=== PATIENT | male | born 1955 | race Caucasian/White ===

== ENCOUNTER 2016-11-27 13:08 | Emergency (ER) | payer BC ==
--- NOTE | 2016-11-27 13:33 | Emergency Department Record ---
History of Present Illness - General Chief complaint: Abscess Stated complaint: WANTS TO HAVE SORES ON HIP LOOKED AT Time Seen by Provider: 11/27/16 13:22 Source: Patient, RN notes reviewed Mode of Arrival: Ambulatory - History of Present Illness Initial comments: patient is concerned about spots on his back which are actinic keratosis and I advised him to follow up with his primary DrLester after his hip surg is done. Onset/Timin -: Days(s) Location: Back Treatments Prior to Arrival: None - Related Data Home Medications Medication Instructions Recorded Confirmed Last Taken Atenolol [Atenolol] 12.5 mg PO QHS 08/27/14 11/27/16 11/27/16 Levothyroxine Sodium [Synthroid] 200 mcg PO DAILY 08/03/15 11/27/16 11/27/16 Allergies Allergy/AdvReac Type Severity Reaction Status Date / Time Penicillins Allergy Unknown RASH Verified 11/27/16 13:17 Sulfa (Sulfonamide Allergy Unknown RASH Verified 11/27/16 13:17 Antibiotics) sulfamethoxazole Allergy Unknown RASH Verified 11/27/16 13:17 Travel Screening - Travel/Exposure Within Last 30 Days Have you traveled within the last 30 days?: No Review of Systems Reviewed: No additional complaints except as noted below Constitutional: Reports: As per HPI. Denies: Chills, Fever, Malaise, Night sweats, Weakness, Weight change Eyes: Reports: As per HPI. Denies: Eye discharge, Eye pain, Photophobia, Vision change ENT: Reports: As per HPI. Denies: Congestion, Dental pain, Ear pain, Epistaxis , Hearing loss, Throat pain Respiratory: Reports: As per HPI. Denies: Cough, Dyspnea, Hemoptysis, Stridor, Wheezes Cardiovascular: Reports: As per HPI. Denies: Arrhythmia, Chest pain, Dyspnea on exertion, Edema, Murmurs, Orthopnea, Palpitations, Paroxysmal nocturnal dyspnea, Rheumatic Fever, Syncope Endocrine: Reports: As per HPI. Denies: Fatigue, Heat or cold intolerance, Polydipsia, Polyuria Gastrointestinal: Reports: As per HPI. Denies: Abdominal pain, Constipation, Diarrhea, Hematemesis, Hematochezia, Melena, Nausea, Vomiting Genitourinary: Reports: As per HPI. Denies: Dysuria, Frequency, Hematuria, Incontinence, Retention, Testicular pain, Testicular mass, Urgency Musculoskeletal: Reports: As per HPI. Denies: Arthralgia, Back pain, Gout, Joint swelling, Myalgia, Neck pain Skin: Reports: As per HPI, Other (actinic keratosis of his back). Denies: Bruising, Change in color, Change in hair/nails, Lesions, Pruritus, Rash Neurological: Reports: As per HPI. Denies: Abnormal gait, Confusion, Headache, Numbness, Paresthesias, Seizure, Tingling, Tremors, Vertigo, Weakness Psychiatric: Reports: As per HPI. Denies: Anxiety, Auditory hallucinations, Depression, Homicidal thoughts, Suicidal thoughts, Visual hallucinations Hematological/Lymphatic: Reports: As per HPI. Denies: Anemia, Blood Clots, Easy bleeding, Easy bruising, Swollen glands Past Medical History - SOCIAL HISTORY Smoking Status: Never smoker Alcohol Use: None Drug Use: None - RESPIRATORY Hx Respiratory Disorders: Yes Hx Pulmonary Embolism: Yes - CARDIOVASCULAR Hx Cardio Disorders: Yes Hx Deep Vein Thrombosis: Yes Hx Irregular Heartbeat: Yes (-2012) - NEURO Hx Neuro Disorders: No - GI Hx GI Disorders: No - Hx Genitourinary Disorders: No - ENDOCRINE Hx Endocrine Disorders: Yes Hx Thyroid Disease: Yes (nodules) - MUSCULOSKELETAL Hx Musculoskeletal Disorders: Yes Hx Arthritis: Yes - PSYCH Hx Psych Problems: No - HEMATOLOGY/ONCOLOGY Hx Hematology/Oncology Disorders: No Family Medical History Any Significant Family History?: Yes Hx Alcohol Use: Father, Brother/Sister Physical Exam - General General Appearance: Alert, Oriented x3, Cooperative, No acute distress - Head Head exam: Normal inspection - Eye Eye exam: Normal appearance, PERRL Pupils: Normal accommodation - ENT ENT exam: Normal exam, Mucous membranes moist, Normal external ear exam, Normal orophraynx, TM's normal bilaterally Ear exam: Normal external inspection. negative: External canal tenderness Nasal Exam: Normal inspection. negative: Discharge, Sinus tenderness Mouth exam: Normal external inspection, Tongue normal Teeth exam: Normal inspection. negative: Dental caries Throat exam: Normal inspection. negative: Tonsillar erythema, Tonsillar exudate - Neck Neck exam: Normal inspection, Full ROM. negative: Tenderness - Respiratory Respiratory exam: Normal lung sounds bilaterally. negative: Respiratory distress - Cardiovascular Cardiovascular Exam: Regular rate, Normal rhythm, Normal heart sounds - GI/Abdominal GI/Abdominal exam: Soft, Normal bowel sounds. negative: Tenderness - Rectal Rectal exam: Deferred - exam: Deferred - Extremities Extremities exam: Normal inspection, Full ROM, Normal capillary refill. negative: Tenderness - Back Back exam: Reports: Normal inspection, Full ROM. Denies: Muscle spasm, Rash noted, Tenderness - Neurological Neurological exam: Alert, Normal gait, Oriented X3, Reflexes normal - Psychiatric Psychiatric exam: Normal affect, Normal mood - Skin Skin exam: Other (actinic keratosis spots on his back) Course Vital Signs 11/27/16 13:12 Temperature 98.3 F Pulse Rate 75 Respiratory 16 Rate Blood Pressure 133/70 Pulse Ox 97 Disposition Clinical Impression: Actinic keratitis Qualifiers: Laterality: right Qualified Code(s): H16.131 - Photokeratitis, right eye Disposition: Home, Self-Care Condition: (1) Good Instructions: Actinic Keratosis (ED) Additional Instructions: follow up with Dr. Paul his primary after hip surgery Forms: Patient Portal Access Time of Disposition: 13:36
== END 2016-11-27 13:42 | disposition home or self-care (01) ==
LOC: ER 13:08
DX: L57.0 Actinic keratosis (principal)
CPT/HCPCS: 99282

== ENCOUNTER 2018-12-18 17:46 | Emergency (ER) | payer BC ==
--- NOTE | 2018-12-18 17:59 | Emergency Department Record ---
History of Present Illness - General Chief Complaint: Arrythmia/Palpitations Stated Complaint: irregular heartbeat Time Seen by Provider: 12/18/18 17:48 Source: Patient Mode of Arrival: Ambulatory Limitations: No limitations - History of Present Illness Initial Comments: 63 yo male presents to ED for evaluation of possible irregular heart beat. Patient reports a history of atrial fibrillation 6 years ago resulting from (2) thyroid nodules, reports that a wrist monitor indicated that he had an irregular heart beat this evening. Patient denies palpitations or chest discomfort, does report chronic shoulder pain resulting from a previous surgery- reports that he has an appointment with a PM&R specialist in 8 days for his shoulder. MD Complaint: Irregular heart beat Onset/Timin -: Minutes(s) Arrythmia History: Atrial fibrillation Associated Symptoms: Denies other symptoms, Other - Related Data Allergies Allergy/AdvReac Type Severity Reaction Status Date / Time Penicillins Allergy Unknown RASH Unverified 03/30/18 10:17 Sulfa (Sulfonamide Allergy Unknown RASH Unverified 03/30/18 10:17 Antibiotics) sulfamethoxazole Allergy Unknown RASH Unverified 03/30/18 10:17 Travel Screening - Travel/Exposure Within Last 30 Days Have you traveled within the last 30 days?: No Review of Systems Constitutional: Denies: Chills, Fever Eyes: Denies: Eye discharge, Eye pain ENT: Denies: Congestion, Ear pain, Epistaxis Respiratory: Denies: Cough, Dyspnea Cardiovascular: Denies: Chest pain, Dyspnea on exertion, Palpitations Endocrine: Denies: Fatigue, Heat or cold intolerance Gastrointestinal: Denies: Abdominal pain, Nausea, Vomiting Genitourinary: Denies: Incontinence, Retention Musculoskeletal: Denies: Arthralgia, Back pain, Gout, Joint swelling Skin: Denies: Bruising, Change in color Neurological: Denies: Abnormal gait, Confusion, Headache, Numbness Psychiatric: Denies: Anxiety Hematological/Lymphatic: Denies: Anemia, Blood Clots Past Medical History - SOCIAL HISTORY Smoking Status: Never smoker - RESPIRATORY Hx Respiratory Disorders: Yes Hx Pulmonary Embolism: Yes - CARDIOVASCULAR Hx Cardio Disorders: Yes Hx Deep Vein Thrombosis: Yes Hx Irregular Heartbeat: Yes (-2012) - NEURO Hx Neuro Disorders: No - GI Hx GI Disorders: No - Hx Genitourinary Disorders: No - ENDOCRINE Hx Endocrine Disorders: Yes Hx Thyroid Disease: Yes (nodules) - MUSCULOSKELETAL Hx Musculoskeletal Disorders: Yes Hx Arthritis: Yes - PSYCH Hx Psych Problems: No - HEMATOLOGY/ONCOLOGY Hx Hematology/Oncology Disorders: No Family Medical History Any Significant Family History?: Yes Hx Alcohol Use: Father, Brother/Sister Physical Exam - General General Appearance: Alert, Oriented x3, Cooperative, No acute distress Limitations: No limitations - Head Head exam: Atraumatic, Normocephalic, Normal inspection Head exam detail: negative: Abrasion, Contusion, Varghese's sign, General tenderness, Hematoma, Laceration - Eye Eye exam: Normal appearance. negative: Conjunctival injection, Periorbital swelling, Periorbital tenderness, Scleral icterus - ENT Ear exam: negative: Auricular hematoma, Auricular trauma Nasal Exam: negative: Active bleeding, Discharge, Dried blood, Foreign body Mouth exam: negative: Drooling, Laceration, Muffled voice, Tongue elevation - Neck Neck exam: Normal inspection. negative: Meningismus, Tenderness - Respiratory Respiratory exam: Normal lung sounds bilaterally. negative: Respiratory distress, Rhonchi, Stridor, Wheezes - Cardiovascular Cardiovascular Exam: Regular rate, Normal rhythm, Normal heart sounds - GI/Abdominal GI/Abdominal exam: Soft. negative: Rebound, Rigid, Tenderness - Rectal Rectal exam: Deferred - exam: Deferred - Extremities Extremities exam: Normal inspection. negative: Tenderness - Back Back exam: Denies: CVA tenderness (R), CVA tenderness (L) - Neurological Neurological exam: Alert, Normal gait, Oriented X3 - Psychiatric Psychiatric exam: Normal affect, Normal mood - Skin Skin exam: Normal color. negative: Abrasion Type of lesion: negative: abrasion Course Vital Signs 12/18/18 17:48 Temperature 97.9 F Pulse Rate 68 Respiratory 18 Rate Blood Pressure 125/77 Pulse Ox 97 - Reevaluation(s) Reevaluation #1: 12/18/18 18:00 EKG: NSR 66 Normal axis, normal intervals No acute ST-T wave changes are present Reevaluation #2: 12/18/18 18:23 Laboratory studies were reviewed and are grossly unremarkable for an acute process. Patient has remained in NSR and asymptomatic since arriving to the ED as well as prior to arrival. Patient's only complaint related to his chronic post-operative left shoulder pain which he reports is improved following Toradol administration. Patient was instructed to return should he experience any SOB, palpitations, or chest discomfort symptoms. Patient verbalizes understanding and appears stable for discharge at this time. Medical Decision Making - Lab Data Result diagrams: 12/18/18 18:01 12/18/18 18:01 Disposition Disposition: Discharge Clinical Impression: Palpitations Disposition: Home, Self-Care Condition: (2) Stable Instructions: Heart Palpitations (ED) Additional Instructions: Return to ED if your symptoms worsen or if you have any concerns. Follow-up with your family doctor in 3-5 days as directed. Forms: Patient Portal Access Time of Disposition: 18:26 Quality - Quality Measures Quality Measures: N/A - Blood Pressure Screening Does Patient Have Any of the Following: No Blood Pressure Classification: Pre-Hypertensive BP Reading Systolic Measurement: 125 Diastolic Measurement: 77 Screening for High Blood Pressure: < Pre-Hypertensive BP, F/U Documented > [ G8950] Pre-Hypertensive Follow-up Interventions: Referral to alternative/primary care provider.
[2018-12-18 18:06] LABS: BASO % 0.4 % (0-6); GRAN % 54.4 % (47-80); HEMOGLOBIN 14.5 gm/dl (14.0-18.0); LYMPH % 33.7 % (16-45); MEAN CELL VOLUME 89.8 fl (81-97); MEAN CORPUSCULAR HEMOGLOBIN 30.3 pg (27-33); MEAN CORPUSCULAR HGB CONC 33.7 g/dl (32-36); MEAN PLATELET VOLUME 8.8 fl (7.4-10.4); MONO % 10.5 % (0-9); PLATELET COUNT 220 K/uL (130-400); RED BLOOD COUNT 4.79 M/uL (4.40-5.70); RED CELL DISTRIBUTION WIDTH 13.6 % (11.5-14.5); WHITE BLOOD COUNT W/O DIFF 6.7 K/uL (4.2-12.2)
[2018-12-18 18:16] LABS: BLOOD UREA NITROGEN 14 mg/dL (8-23); EST GLOMERULAR FILTRATION RATE > 60 mL/min
[2018-12-18 18:17] LABS: TOTAL PROTEIN 7.4 g/dL (6.6-8.7)
[2018-12-18 18:19] LABS: GLUCOSE,RANDOM 109 mg/dL (74-109)
[2018-12-18 18:22] LABS: ALB/GLOB RATIO 1.3 (1.1-1.8); ALBUMIN 4.2 g/dL (4.0-5.0); ALKALINE PHOSPHATASE 91 U/L (40-129); ALT/SGPT 20 U/L (<41); AST/SGOT 17 U/L (10.0-50.0)
[2018-12-18] MEDS: KETOROLAC 30 MG/ML VIAL IVP ONE (18:28)
== END 2018-12-18 18:57 | disposition home or self-care (01) ==
LOC: ER 17:46
DX: R00.2 Palpitations (principal); M25.512 Pain in left shoulder; G89.28 Other chronic postprocedural pain; Z86.711 Personal history of pulmonary embolism
CPT/HCPCS: 80053; 85025; 93005; 93010; 96374; 99284; J1885

== ENCOUNTER 2019-01-04 08:06 | Emergency (ER) | payer BC ==
[2019-01-04] MEDS ORDERED: 0.9 % SODIUM CHLORIDE 1000ML 1,000 ML IV PRN (08:10)
[2019-01-04] MEDS ORDERED: ASPIRIN 81 MG CHEWABLE TABLET PO ONE (08:10)
[2019-01-04 08:24] LABS: BASO % 0.3 % (0-6); EOS % 1.2 % (0-6); GRAN % 51.8 % (47-80); HEMATOCRIT 42.9 % (42.0-52.0); HEMOGLOBIN 14.6 gm/dl (14.0-18.0); LYMPH % 38.2 % (16-45); MEAN CELL VOLUME 90.3 fl (81-97); MEAN CORPUSCULAR HEMOGLOBIN 30.7 pg (27-33); MEAN PLATELET VOLUME 8.6 fl (7.4-10.4); MONO % 8.5 % (0-9); PLATELET COUNT 216 K/uL (130-400); RED BLOOD COUNT 4.75 M/uL (4.40-5.70); RED CELL DISTRIBUTION WIDTH 13.6 % (11.5-14.5); WHITE BLOOD COUNT W/O DIFF 6.6 K/uL (4.2-12.2)
[2019-01-04 08:38] LABS: BLOOD UREA NITROGEN 16 mg/dL (8-23); CREATININE 1.1 mg/dL (0.7-1.2); EST GLOMERULAR FILTRATION RATE > 60 mL/min
[2019-01-04 08:41] LABS: GLUCOSE,RANDOM 96 mg/dL (74-109)
--- NOTE | 2019-01-04 08:44 | Emergency Department Record ---
History of Present Illness - General Chief Complaint: Palpitations Stated Complaint: PALPITATIONS Time Seen by Provider: 01/04/19 08:10 Source: Patient Mode of Arrival: Ambulatory - History of Present Illness Initial Comments: patient laying in bed and felt his heart beat while he was trying to sleep and he uses CPAP and he has a thyroid problem with thyroid nodules and his thyroid was removed 3 years ago and he has anxiety and panic attacks and no chest pain and no dyspnea and he was here one month ago for similiar problems and he is concerned about his weight. PSH DVT 6 years ago. History of Atrial fib 6 years ago. Never smoked cigarettes no alcohol use. -: Minutes(s) Associated Symptoms: Anxiety - Related Data Previous Rx's Medication Instructions Recorded Hydroxyzine Pamoate [Vistaril] 25 mg PO Q6H #14 capsule 01/04/19 Allergies Allergy/AdvReac Type Severity Reaction Status Date / Time Penicillins Allergy Unknown RASH Verified 01/04/19 08:20 Sulfa (Sulfonamide Allergy Unknown RASH Verified 01/04/19 08:20 Antibiotics) sulfamethoxazole Allergy Unknown RASH Verified 01/04/19 08:20 Travel Screening - Travel/Exposure Within Last 30 Days Have you traveled within the last 30 days?: No - Travel/Exposure Within Last Year Have you traveled outside the [place] in the last year?: No - Additonal Travel Details Have you been exposed to anyone with a communicable illness?: No - Travel Symptoms Symptom Screening: None Review of Systems Reviewed: No additional complaints except as noted below Constitutional: Reports: As per HPI. Denies: Chills, Fever, Malaise, Night sweats, Weakness, Weight change Eyes: Reports: As per HPI. Denies: Eye discharge, Eye pain, Photophobia, Vision change ENT: Reports: As per HPI. Denies: Congestion, Dental pain, Ear pain, Epistaxis , Hearing loss, Throat pain Respiratory: Reports: As per HPI. Denies: Cough, Dyspnea, Hemoptysis, Stridor, Wheezes Cardiovascular: Reports: As per HPI, Palpitations. Denies: Arrhythmia, Chest pain, Dyspnea on exertion, Edema, Murmurs, Orthopnea, Paroxysmal nocturnal dyspnea, Rheumatic Fever, Syncope Endocrine: Reports: As per HPI. Denies: Fatigue, Heat or cold intolerance, Polydipsia, Polyuria Gastrointestinal: Reports: As per HPI. Denies: Abdominal pain, Constipation, Diarrhea, Hematemesis, Hematochezia, Melena, Nausea, Vomiting Genitourinary: Reports: As per HPI. Denies: Dysuria, Frequency, Hematuria, Incontinence, Retention, Testicular pain, Testicular mass, Urgency Musculoskeletal: Reports: As per HPI. Denies: Arthralgia, Back pain, Gout, Joint swelling, Myalgia, Neck pain Skin: Reports: As per HPI. Denies: Bruising, Change in color, Change in hair/ nails, Lesions, Pruritus, Rash Neurological: Reports: As per HPI. Denies: Abnormal gait, Confusion, Headache, Numbness, Paresthesias, Seizure, Tingling, Tremors, Vertigo, Weakness Psychiatric: Reports: As per HPI. Denies: Anxiety, Auditory hallucinations, Depression, Homicidal thoughts, Suicidal thoughts, Visual hallucinations Hematological/Lymphatic: Reports: As per HPI. Denies: Anemia, Blood Clots, Easy bleeding, Easy bruising, Swollen glands Past Medical History - SOCIAL HISTORY Smoking Status: Never smoker Alcohol Use: None Drug Use: None - RESPIRATORY Hx Respiratory Disorders: Yes Hx Pulmonary Embolism: Yes - CARDIOVASCULAR Hx Cardio Disorders: Yes Hx Deep Vein Thrombosis: Yes Hx Irregular Heartbeat: Yes (A-2012) - NEURO Hx Neuro Disorders: No - GI Hx GI Disorders: No - Hx Genitourinary Disorders: No - ENDOCRINE Hx Endocrine Disorders: Yes Hx Thyroid Disease: Yes (nodules) - MUSCULOSKELETAL Hx Musculoskeletal Disorders: Yes Hx Arthritis: Yes - PSYCH Hx Psych Problems: No - HEMATOLOGY/ONCOLOGY Hx Hematology/Oncology Disorders: No Family Medical History Any Significant Family History?: No Hx Alcohol Use: Father, Brother/Sister Physical Exam - General General Appearance: Alert, Oriented x3, Cooperative, No acute distress - Head Head exam: Normal inspection - Eye Eye exam: Normal appearance, PERRL Pupils: Normal accommodation - ENT ENT exam: Normal exam, Mucous membranes moist, Normal external ear exam, Normal orophraynx, TM's normal bilaterally Ear exam: Normal external inspection. negative: External canal tenderness Nasal Exam: Normal inspection. negative: Discharge, Sinus tenderness Mouth exam: Normal external inspection, Tongue normal Teeth exam: Normal inspection. negative: Dental caries Throat exam: Normal inspection. negative: Tonsillar erythema, Tonsillar exudate - Neck Neck exam: Normal inspection, Full ROM. negative: Tenderness - Respiratory Respiratory exam: Normal lung sounds bilaterally. negative: Respiratory distress - Cardiovascular Cardiovascular Exam: Regular rate, Normal rhythm, Normal heart sounds - GI/Abdominal GI/Abdominal exam: Soft, Normal bowel sounds. negative: Tenderness - Rectal Rectal exam: Deferred - exam: Deferred - Extremities Extremities exam: Normal inspection, Full ROM, Normal capillary refill. negative: Tenderness - Back Back exam: Reports: Normal inspection, Full ROM. Denies: Muscle spasm, Rash noted, Tenderness - Neurological Neurological exam: Alert, Normal gait, Oriented X3, Reflexes normal - Psychiatric Psychiatric exam: Normal affect, Normal mood - Skin Skin exam: Dry, Intact, Normal color, Warm Course Vital Signs 01/04/19 08:10 Pulse Rate 66 Respiratory 20 Rate Blood Pressure 137/89 Pulse Ox 96 - Reevaluation(s) Reevaluation #1: patient is feeling better but still anxious and offerred to give him ativan and he wants to be able to drive home so he said no. 01/04/19 08:46 Medical Decision Making - Data Complexity MDM Data: Labs Ordered and/or Reviewed (troponin negative and the TSH is 3.27), EKG Ordered and/or Reviewed (NSR, no acute changes) - Lab Data Result diagrams: 01/04/19 08:15 01/04/19 08:15 Disposition Clinical Impression: Palpitations, Anxiety Disposition: Home, Self-Care Condition: (1) Good Instructions: Heart Palpitations (ED), Panic Attack (ED) Additional Instructions: follow up with family Dr in 3 to 5 days Prescriptions: Hydroxyzine Pamoate [Vistaril] 25 mg PO Q6H #14 capsule Forms: Patient Portal Access Time of Disposition: 09:06 Quality - Quality Measures Quality Measures: N/A - Blood Pressure Screening Does Patient Have Any of the Following: No Blood Pressure Classification: Pre-Hypertensive BP Reading Systolic Measurement: 137 Diastolic Measurement: 89 Screening for High Blood Pressure: < Pre-Hypertensive BP, F/U Documented > [ G8950] Pre-Hypertensive Follow-up Interventions: Referral to alternative/primary care provider.
[2019-01-04 08:55] LABS: THYROID STIMULATING HORMONE 3.27 uIU/mL (0.270-4.20)
== END 2019-01-04 09:26 | disposition home or self-care (01) ==
LOC: ER 08:06
DX: R00.2 Palpitations (principal); F41.9 Anxiety disorder, unspecified
CPT/HCPCS: 80048; 84443; 84484; 85025; 85730; 93005; 93010; 99284

== ENCOUNTER 2019-01-24 06:03 | Emergency (ER) | payer BC ==
[2019-01-24] MEDS ORDERED: ASPIRIN 325 MG TABLET PO ONE (06:14)
[2019-01-24] MEDS ORDERED: NITROGLYCERIN 0.4MG SL TABLET #25 BTL SL ONE (06:15)
[2019-01-24 06:21] LABS: BASO % 0.3 % (0-6); EOS % 1.8 % (0-6); GRAN % 49.2 % (47-80); HEMATOCRIT 41.8 % (42.0-52.0); HEMOGLOBIN 14.1 gm/dl (14.0-18.0); LYMPH % 39.7 % (16-45); MEAN CELL VOLUME 90.7 fl (81-97); MEAN CORPUSCULAR HEMOGLOBIN 30.6 pg (27-33); MEAN CORPUSCULAR HGB CONC 33.7 g/dl (32-36); MEAN PLATELET VOLUME 8.6 fl (7.4-10.4); PLATELET COUNT 228 K/uL (130-400); RED BLOOD COUNT 4.61 M/uL (4.40-5.70); RED CELL DISTRIBUTION WIDTH 13.7 % (11.5-14.5); WHITE BLOOD COUNT W/O DIFF 7.7 K/uL (4.2-12.2)
--- NOTE | 2019-01-24 06:28 | Emergency Department Record ---
History of Present Illness - General Source: Patient, Family () Mode of Arrival: Ambulatory Limitations: No limitations - History of Present Illness Initial Comments: Pt to the ED with complaint of pain to his left upper chest into his neck pain onset about one hour prior to arrival. This began at rest at home without associated TRINI, nausea, diaphoresis. Pt has hx of HTN on meds and obesity. He is a non smoker without DM. Pt also has thyroid disease. There is no hx of angina or GA. Pt is anxious this AM secondary to his pains. There is no recent illness, fever, cough, travel. No treatments prior to arrival. Takes one baby ASA per day. Pt rates the pain at 5 of 10 on arrival. MD Complaint: Chest pain Onset/Timin -: Minutes(s) Onset: Awoke with symptoms Pain Location: Substernal Pain Radiation: None Severity: Moderate Severity scale (1-10): 7 Quality: Other Consistency: Constant Improves With: Nothing Worsens With: Other Anginal Symptoms: Other Other Symptoms: Other Treatments Prior to Arrival: None <Kong Oneal - Last Filed: 01/24/19 06:53> <JEANE PARIKH - Last Filed: 01/24/19 10:03> - General Chief Complaint: Chest Pain Stated Complaint: CHEST PAIN Time Seen by Provider: 01/24/19 06:14 - Related Data Home Medications Medication Instructions Recorded Confirmed Last Taken Aspirin [Aspirin EC] 81 mg PO DAILY 01/24/19 01/24/19 Unknown Previous Rx's Medication Instructions Recorded Hydroxyzine Pamoate [Vistaril] 25 mg PO Q6H #14 capsule 01/04/19 Lorazepam [Ativan] 1 mg PO ONCE PRN #3 tablet 01/24/19 Allergies Allergy/AdvReac Type Severity Reaction Status Date / Time Penicillins Allergy Unknown RASH Verified 01/04/19 08:20 Sulfa (Sulfonamide Allergy Unknown RASH Verified 01/04/19 08:20 Antibiotics) sulfamethoxazole Allergy Unknown RASH Verified 01/04/19 08:20 Travel Screening - Travel/Exposure Within Last 30 Days Have you traveled within the last 30 days?: No - Travel Symptoms Symptom Screening: None <Kong Oneal - Last Filed: 01/24/19 06:53> Review of Systems Constitutional: Denies: Chills, Fever, Weakness Eyes: Denies: Eye discharge, Eye pain, Photophobia ENT: Reports: As per HPI, Throat pain. Denies: Congestion, Ear pain Respiratory: Denies: Cough, Dyspnea, Wheezes Cardiovascular: Reports: As per HPI. Denies: Dyspnea on exertion, Edema, Palpitations, Syncope Endocrine: Denies: Fatigue, Polydipsia, Polyuria Gastrointestinal: Denies: Abdominal pain, Diarrhea, Nausea, Vomiting Genitourinary: Denies: Dysuria, Incontinence Musculoskeletal: Denies: Back pain Skin: Denies: Bruising, Rash Neurological: Denies: Abnormal gait, Headache, Numbness, Tremors Psychiatric: Reports: Anxiety. Denies: Suicidal thoughts Hematological/Lymphatic: Denies: Anemia <Kong Oneal - Last Filed: 01/24/19 06:53> Past Medical History - SOCIAL HISTORY Smoking Status: Never smoker Alcohol Use: None - RESPIRATORY Hx Respiratory Disorders: Yes Hx Pulmonary Embolism: Yes - CARDIOVASCULAR Hx Cardio Disorders: Yes Hx Chest Pain: Yes Hx Deep Vein Thrombosis: Yes Hx Irregular Heartbeat: Yes (2012) - NEURO Hx Neuro Disorders: No - GI Hx GI Disorders: No - Hx Genitourinary Disorders: No - ENDOCRINE Hx Endocrine Disorders: Yes Hx Thyroid Disease: Yes (nodules) - MUSCULOSKELETAL Hx Musculoskeletal Disorders: Yes Hx Arthritis: Yes - PSYCH Hx Psych Problems: No - HEMATOLOGY/ONCOLOGY Hx Hematology/Oncology Disorders: No <Kong Oneal - Last Filed: 01/24/19 06:53> Family Medical History Any Significant Family History?: Yes Hx Alcohol Use: Father, Brother/Sister <Kong Oneal - Last Filed: 01/24/19 06:53> Physical Exam - General General Appearance: Alert, Oriented x3, Cooperative, Mild distress, Anxious Limitations: No limitations - Head Head exam: Atraumatic - Eye Eye exam: Normal appearance, PERRL, EOMI - ENT ENT exam: Normal exam, Mucous membranes moist, Normal orophraynx, TM's normal bilaterally Nasal Exam: Normal inspection - Neck Neck exam: Normal inspection, Full ROM. negative: Meningismus, Tenderness - Respiratory Respiratory exam: Normal lung sounds bilaterally. negative: Respiratory distress, Rhonchi, Wheezes - Cardiovascular Cardiovascular Exam: Regular rate, Normal rhythm, Normal heart sounds. negative : Tachycardia Peripheral Pulses: 2+: Radial (R), Radial (L) - GI/Abdominal GI/Abdominal exam: Soft, Normal bowel sounds. negative: Guarding, Rebound, Tenderness - Extremities Extremities exam: Normal inspection. negative: Calf tenderness, Tenderness - Back Back exam: Reports: Normal inspection. Denies: Paraspinal tenderness - Neurological Neurological exam: Alert, Normal gait, Oriented X3 - Psychiatric Psychiatric exam: Anxious. negative: Suicidal ideation - Skin Skin exam: Normal color. negative: Rash <Kong Oneal - Last Filed: 01/24/19 06:53> Course Vital Signs 01/24/19 06:05 Pulse Rate 69 Respiratory 22 Rate Blood Pressure 146/81 Pulse Ox 97 - Reevaluation(s) Reevaluation #1: 01/24/19 06:53 Pt labs and Xray /EKG normal. Pain to the shoulder and left clavicle. Remains anxious. Sister in law yesterday with cardiac disease. at bedside. Pt agrees to Toradol for pains and itivan for anxiety. We will repeat Trop at 3 hours. If normal pt will follow with Dr Paul his Family Doctor to discuss his issues and anxiety. <JmKong Chery - Last Filed: 01/24/19 06:53> Vital Signs 01/24/19 01/24/19 01/24/19 06:05 06:26 06:30 Temperature Pulse Rate 69 Pulse Rate [ 66 63 Demurrage Agent ] Respiratory 22 20 20 Rate Blood Pressure 146/81 Blood Pressure 139/81 141/82 [Left Arm] Pulse Ox 97 96 94 L 01/24/19 06:50 Temperature 97.4 F L Pulse Rate Pulse Rate [ 64 Demurrage Agent ] Respiratory Rate Blood Pressure Blood Pressure 129/80 [Left Arm] Pulse Ox 96 - Reevaluation(s) Reevaluation #1: 01/24/19 07:15 The case was turned over at shift turn over by Dr Oneal. The initial labs and EKG were complete and reviewed. The plan of care by Dr Oneal at the time of turn over is to check a three hour Troponin and DC if negative. The chart was reviewed. The patient was seen and examined. The patient expresses nearly constant left neck and left shoulder pain. He has been trying to get an appointment for his anxiety with his PCP. He has an appointment scheduled February 08. The patient and Dr Oneal discussed the atypical nature of the symptoms. They agreed to recheck his Troponin after three hours. The patient concurs with the plan. If negative, their plan is for DC home with PCP follow up. The patient states the pain is completely gone after the Toradol and Ativan. 01/24/19 09:54 The repeat troponin is normal DC with followup instructions to call his PCP for close follow up <JEANE PARIKH - Last Filed: 01/24/19 10:03> Procedures - EKG Initial Date: 01/24/19 Time: 06:05 EKG: Normal EKG (SR 68) <Kong Oneal - Last Filed: 01/24/19 06:53> Medical Decision Making - Data Complexity MDM Data: Labs Ordered and/or Reviewed, X-Ray Ordered and/or Reviewed, EKG Ordered and/or Reviewed, Independent Visualization of Image, Tracing, or Specimen, Decision to Obtain Old Record, Review and Summary of Old Record Discussed - Lab Data Result diagrams: 01/24/19 06:15 01/24/19 06:15 - EKG Data -: EKG Interpreted by Me EKG: No Acute Changes, Normal EKG - Radiology Data Radiology results: Image reviewed -: Radiology Exam Interpreted by Myself <Kong Oneal - Last Filed: 01/24/19 06:53> - Lab Data Result diagrams: 01/24/19 06:15 01/24/19 06:15 Lab Results 01/24/19 01/24/19 Range/Units 06:15 06:15 WBC 7.7 (4.2-12.2) K/uL RBC 4.61 (4.40-5.70) M/uL Hgb 14.1 (14.0-18.0) gm/dl Hct 41.8 L (42.0-52.0) % MCV 90.7 (81-97) fl MCH 30.6 (27-33) pg MCHC 33.7 (32-36) g/dl RDW 13.7 (11.5-14.5) % Plt Count 228 (130-400) K/uL MPV 8.6 (7.4-10.4) fl Gran % 49.2 (47-80) % Lymphocytes % 39.7 (16-45) % Monocytes % 9.0 (0-9) % Eosinophils % 1.8 (0-6) % Basophils % 0.3 (0-6) % Sodium 143 (136-145) mmol/L Potassium 3.4 (3.4-4.5) mmol/L Chloride 105 (98-107) mmol/L Carbon Dioxide 26.0 (22-29) mmol/L Anion Gap 12.0 (7-16) BUN 11 (8-23) mg/dL Creatinine 1.0 (0.7-1.2) mg/dL Estimated GFR > 60 mL/min Random Glucose 101 (74-109) mg/dL Calcium 9.1 (8.8-10.2) mg/dL Troponin T < 0.010 (0-0.010) ng/mL NT-Pro-B Natriuret Pep 81.39 (<125) pg/mL <JEANE PARIKH - Last Filed: 01/24/19 10:03> Disposition <Kong Oneal - Last Filed: 01/24/19 06:53> Disposition: Discharge Time of Disposition: 09:55 <JEANE PARIKH - Last Filed: 01/24/19 10:03> Clinical Impression: Atypical chest pain Disposition: Home, Self-Care Condition: (1) Good Instructions: Chest Pain (ED) Additional Instructions: Call your doctor for the next available follow up appointment Return to the ER for a recheck if worse, any new concerns or questions Review this ER visit and the tests performed with your family doctor Prescriptions: Lorazepam [Ativan] 1 mg PO ONCE PRN #3 tablet PRN Reason: Anxiety Forms: Patient Portal Access Quality - Blood Pressure Screening Does Patient Have Any of the Following: No Blood Pressure Classification: Pre-Hypertensive BP Reading Systolic Measurement: 146 Diastolic Measurement: 81 Screening for High Blood Pressure: < Pre-Hypertensive BP, F/U Documented > [ G8950] <Kong Oneal - Last Filed: 01/24/19 06:53> - Quality Measures Quality Measures: N/A - Blood Pressure Screening Does Patient Have Any of the Following: Active Dx of HTN Blood Pressure Classification: Pre-Hypertensive BP Reading Systolic Measurement: 146 Diastolic Measurement: 81 Screening for High Blood Pressure: Patient Exclusion, Hx of HTN [G9744] Pre-Hypertensive Follow-up Interventions: Referral to alternative/primary care provider. <JEANE PARIKH - Last Filed: 01/24/19 10:03>
[2019-01-24 06:38] LABS: BLOOD UREA NITROGEN 11 mg/dL (8-23); EST GLOMERULAR FILTRATION RATE > 60 mL/min
[2019-01-24 06:40] LABS: GLUCOSE,RANDOM 101 mg/dL (74-109)
[2019-01-24 06:45] LABS: NTpro B-NATRIURETIC PEPTIDE 81.39 pg/mL (<125)
[2019-01-24] MEDS ORDERED: KETOROLAC 30 MG/ML VIAL IVP ONE (06:52)
[2019-01-24] MEDS ORDERED: LORAZEPAM 2 MG/ML VIAL IV ONE (06:53)
--- NOTE | 2019-01-27 11:30 | RADIOLOGY REPORT ---
DATE: 01/24/2019 at 0638. EXAM: CHEST, TWO VIEWS. HISTORY: Left-sided chest pain radiating to the left shoulder. TECHNIQUE: Upright PA and lateral views of the chest. COMPARISON: CT angiogram of the chest dated 05/07/2012. FINDINGS: The heart is not enlarged. No pulmonary venous hypertension. The thoracic aorta is mildly tortuous and atherosclerotic. No confluent airspace opacity is seen; nor is there costophrenic angle blunting or pneumothorax. Bridging marginal osteophytes are scattered throughout the visualized spine. There is levoconvex curvature of the upper thoracic spine and mild secondary dextrocurvature involving the lower thoracic spine. There are degenerative changes of the shoulder girdles. IMPRESSION: NO RADIOGRAPHIC EVIDENCE OF ACUTE CARDIOPULMONARY DISEASE. Job Number: [id number] [facility], [place]
== END 2019-01-24 10:10 | disposition home or self-care (01) ==
LOC: ER 06:03
DX: R07.89 Other chest pain (principal); M54.2 Cervicalgia; I10 Essential (primary) hypertension
CPT/HCPCS: 99284 ×2; 96374; 96375; 85025; 80048; 84484; 83880; 71046; 93005; 93010; J1885; J2060

== ENCOUNTER 2019-03-09 23:31 | Emergency (ER) | payer BC ==
[2019-03-09] MEDS ORDERED: LORAZEPAM 0.5 MG TABLET PO ONE (23:47)
--- NOTE | 2019-03-09 23:55 | Emergency Department Record ---
History of Present Illness - General Chief Complaint: Hypertension Stated Complaint: high blood pressure Time Seen by Provider: 03/09/19 23:34 Source: Patient, Family Mode of Arrival: Ambulatory Limitations: No limitations - History of Present Illness Initial Comments: 63 yo male presents with flushed feeling this evening. It lasted 15 minutes but now resolved. He denies chest pain, shortness of breath, syncope, palpitations. He was worried about his BP. He states he is not compliant with his Buspar. No other recent changes in his health. He has a history of thyroidectomy, atrial fibrillation in the remote past. NO calf pain or edema. Normal appetite. No abdominal pain. He has some history of anxiety and feels anxious. Dr Paul is his PCP. He has chronic shoulder issues. He is scheduled for physical therapy at [facility] on Monday Complaint: Other (Flushed feeling) Onset/Timin -: Minutes(s) Timing: Constant History of Same: Yes History of Trauma: No Severity: Moderate Improves With: Nothing Worsens With: Nothing Associated Symptoms: Denies other symptoms - [place]yn Coma Scale Eye Response: (4) Open spontaneously Motor Response: (6) Obeys commands Verbal Response: (5) Oriented Caret Total: 15 - Symptoms of Stroke Baseline State: Baseline State - Related Data Home Medications Medication Instructions Recorded Confirmed Last Taken Buspirone HCl [Buspar] 7.5 mg PO BID 03/09/19 03/09/19 Unknown Allergies Allergy/AdvReac Type Severity Reaction Status Date / Time Penicillins Allergy Unknown RASH Verified 03/09/19 23:45 Sulfa (Sulfonamide Allergy Unknown RASH Verified 03/09/19 23:45 Antibiotics) sulfamethoxazole Allergy Unknown RASH Verified 03/09/19 23:45 Travel Screening - Travel/Exposure Within Last 30 Days Have you traveled within the last 30 days?: No - Travel/Exposure Within Last Year Have you traveled outside the [place] in the last year?: No - Additonal Travel Details Have you been exposed to anyone with a communicable illness?: No - Travel Symptoms Symptom Screening: None Review of Systems Constitutional: Denies: Chills, Fever, Malaise, Weakness Eyes: Denies: Eye discharge ENT: Denies: Congestion, Epistaxis, Throat pain Respiratory: Denies: Cough, Dyspnea, Hemoptysis, Stridor, Wheezes Cardiovascular: Denies: Chest pain, Dyspnea on exertion, Edema, Palpitations, Syncope Endocrine: Denies: Fatigue, Polydipsia, Polyuria Gastrointestinal: Denies: Abdominal pain, Diarrhea, Nausea, Vomiting Musculoskeletal: Reports: As per HPI, Myalgia. Denies: Arthralgia, Back pain Skin: Denies: Bruising, Change in color, Rash Neurological: Denies: Confusion, Headache, Numbness, Vertigo, Weakness Psychiatric: Reports: Anxiety Hematological/Lymphatic: Denies: Easy bleeding, Easy bruising Past Medical History - SOCIAL HISTORY Smoking Status: Never smoker Alcohol Use: None - RESPIRATORY Hx Respiratory Disorders: Yes Hx Pulmonary Embolism: Yes - CARDIOVASCULAR Hx Cardio Disorders: Yes Hx Chest Pain: Yes Hx Deep Vein Thrombosis: Yes Hx Irregular Heartbeat: Yes (2012) - NEURO Hx Neuro Disorders: No - GI Hx GI Disorders: No - Hx Genitourinary Disorders: No - ENDOCRINE Hx Endocrine Disorders: Yes Hx Thyroid Disease: Yes (nodules) - MUSCULOSKELETAL Hx Musculoskeletal Disorders: Yes Hx Arthritis: Yes - PSYCH Hx Psych Problems: No - HEMATOLOGY/ONCOLOGY Hx Hematology/Oncology Disorders: No Family Medical History Any Significant Family History?: No Hx Alcohol Use: Father, Brother/Sister Physical Exam - General General Appearance: Alert, Oriented x3, Cooperative, No acute distress Limitations: No limitations - Head Head exam: Atraumatic, Normal inspection - Eye Eye exam: Normal appearance, PERRL. negative: Conjunctival injection, Scleral icterus - ENT ENT exam: Normal exam, Mucous membranes moist Ear exam: Normal external inspection Nasal Exam: Normal inspection Mouth exam: Normal external inspection - Neck Neck exam: Normal inspection. negative: Lymphadenopathy, Thyromegaly (S/P thyroidectomy) - Respiratory Respiratory exam: Normal lung sounds bilaterally. negative: Respiratory distress, Rhonchi, Stridor, Wheezes - Cardiovascular Cardiovascular Exam: Regular rate, Normal rhythm, Normal heart sounds Peripheral Pulses: 2+: Radial (R), Radial (L) - GI/Abdominal GI/Abdominal exam: Soft, Normal bowel sounds. negative: Tenderness - Rectal Rectal exam: Deferred - Extremities Extremities exam: Normal inspection. negative: Calf tenderness, Pedal edema, Tenderness - Back Back exam: Denies: CVA tenderness (R), CVA tenderness (L) - Neurological Neurological exam: Alert, Oriented X3. negative: Altered - Psychiatric Psychiatric exam: Anxious (mild) - Skin Skin exam: Dry, Intact, Normal color, Warm Course Vital Signs 03/09/19 23:40 Temperature 97.6 F Pulse Rate 68 Respiratory 20 Rate Blood Pressure 155/92 Pulse Ox 97 - Reevaluation(s) Reevaluation #1: 03/09/19 23:57 EKG #1: 23:51 Rate: 72 Rhythm: sinus [place]: normal Intervals: normal ST segments: normal Prior: no change from January 24 2019 03/10/19 00:28 No acute abnormalities on the CBC or CMP Medical Decision Making - Lab Data Result diagrams: 03/09/19 00:01 03/09/19 00:01 Disposition Disposition: Discharge Clinical Impression: Flushing, Anxiety Disposition: Home, Self-Care Condition: (1) Good Instructions: Hypertension (ED) Additional Instructions: Call your doctor for the next available follow up appointment Review this ER visit and the tests performed with your family doctor Return to the ER for a recheck if worse, any new concerns or questions Forms: Patient Portal Access Time of Disposition: 00:28 Quality - Quality Measures Quality Measures: N/A - Blood Pressure Screening Does Patient Have Any of the Following: Active Dx of HTN Blood Pressure Classification: Hypertensive Reading Systolic Measurement: 155 Diastolic Measurement: 92 Screening for High Blood Pressure: Patient Exclusion, Hx of HTN [G9744]
[2019-03-10 00:09] LABS: ABSOLUTE NEUTROPHIL COUNT 3.96; BASO % 0.3 % (0-6); GRAN % 50.3 % (47-80); HEMATOCRIT 42.2 % (42.0-52.0); HEMOGLOBIN 14.1 gm/dl (14.0-18.0); LYMPH % 39.1 % (16-45); MEAN CELL VOLUME 91.3 fl (81-97); MEAN CORPUSCULAR HEMOGLOBIN 30.5 pg (27-33); MEAN CORPUSCULAR HGB CONC 33.4 g/dl (32-36); MEAN PLATELET VOLUME 8.7 fl (7.4-10.4); MONO % 9.3 % (0-9); PLATELET COUNT 202 K/uL (130-400); RED BLOOD COUNT 4.62 M/uL (4.40-5.70); WHITE BLOOD COUNT W/O DIFF 7.9 K/uL (4.2-12.2)
[2019-03-10 00:17] LABS: BLOOD UREA NITROGEN 16 mg/dL (8-23); EST GLOMERULAR FILTRATION RATE > 60 mL/min
[2019-03-10 00:20] LABS: GLUCOSE,RANDOM 108 mg/dL (74-109)
[2019-03-10 00:22] LABS: ALB/GLOB RATIO 1.5 (1.1-1.8); ALBUMIN 4.2 g/dL (4.0-5.0); ALT/SGPT 20 U/L (<41); AST/SGOT 16 U/L (10.0-50.0)
[2019-03-10 00:23] LABS: ALKALINE PHOSPHATASE 98 U/L (40-129)
== END 2019-03-10 00:41 | disposition home or self-care (01) ==
LOC: ER 23:31
DX: R23.2 Flushing (principal); F41.9 Anxiety disorder, unspecified; Z86.718 Personal history of other venous thrombosis and embolism; I10 Essential (primary) hypertension; E07.9 Disorder of thyroid, unspecified
CPT/HCPCS: 80053; 84443; 85025; 93005; 93010; 99284

== ENCOUNTER 2019-04-22 12:48 | Emergency (ER) | payer BC ==
--- NOTE | 2019-04-22 13:17 | Emergency Department Record ---
History of Present Illness - General Chief Complaint: Arrythmia/Palpitations Stated Complaint: FEELS LIKE HEART IS SKIPPING Time Seen by Provider: 04/22/19 13:02 Mode of Arrival: Ambulatory - History of Present Illness Initial Comments: Pt from home with for feeling his heart "race and skip". Pt has know thyroid disease with removal and thyroid replacement therapy. Recent increase in dose. No syncope or light headed sensation. No CP or TRINI. Pt admits to issues with anxiety and feels this could all be "in my head". He denies suicidal thoughts. He is NOT seeing a psych hostess cashier. No new foods, caffeine, travel. Associated Symptoms: Anxiety - Related Data Home Medications Medication Instructions Recorded Confirmed Last Taken Levothyroxine Sodium 175 mcg PO DAILY 04/22/19 04/22/19 Unknown Allergies Allergy/AdvReac Type Severity Reaction Status Date / Time Penicillins Allergy Unknown RASH Verified 03/09/19 23:45 Sulfa (Sulfonamide Allergy Unknown RASH Verified 03/09/19 23:45 Antibiotics) sulfamethoxazole Allergy Unknown RASH Verified 03/09/19 23:45 Travel Screening - Travel/Exposure Within Last 30 Days Have you traveled within the last 30 days?: No - Travel/Exposure Within Last Year Have you traveled outside the [place] in the last year?: No - Additonal Travel Details Have you been exposed to anyone with a communicable illness?: No - Travel Symptoms Symptom Screening: None Review of Systems Constitutional: Denies: Chills, Fever, Weakness Eyes: Denies: Eye discharge, Photophobia, Vision change ENT: Denies: Congestion, Ear pain Respiratory: Denies: Cough, Dyspnea Cardiovascular: Reports: As per HPI, Palpitations. Denies: Chest pain, Paroxysmal nocturnal dyspnea, Syncope Endocrine: Denies: Fatigue, Polyuria Gastrointestinal: Denies: Abdominal pain, Diarrhea, Nausea, Vomiting Musculoskeletal: Denies: Back pain Skin: Denies: Bruising, Rash Neurological: Denies: Confusion, Headache, Weakness Psychiatric: Reports: Anxiety. Denies: Suicidal thoughts Hematological/Lymphatic: Denies: Anemia Past Medical History - SOCIAL HISTORY Smoking Status: Never smoker Alcohol Use: None Drug Use: None - RESPIRATORY Hx Respiratory Disorders: Yes Hx Pulmonary Embolism: Yes - CARDIOVASCULAR Hx Cardio Disorders: Yes Hx Chest Pain: Yes Hx Deep Vein Thrombosis: Yes Hx Irregular Heartbeat: Yes (A-Fib 2012) - NEURO Hx Neuro Disorders: No - GI Hx GI Disorders: No - Hx Genitourinary Disorders: No - ENDOCRINE Hx Endocrine Disorders: Yes Hx Thyroid Disease: Yes (nodules) - MUSCULOSKELETAL Hx Musculoskeletal Disorders: Yes Hx Arthritis: Yes - PSYCH Hx Psych Problems: No - HEMATOLOGY/ONCOLOGY Hx Hematology/Oncology Disorders: No Family Medical History Any Significant Family History?: No Hx Alcohol Use: Father, Brother/Sister Physical Exam - General General Appearance: Alert, Oriented x3, Cooperative, No acute distress - Head Head exam: Normal inspection - Eye Eye exam: Normal appearance, PERRL - ENT ENT exam: Normal exam, Mucous membranes moist, Normal external ear exam, Normal orophraynx, TM's normal bilaterally - Neck Neck exam: Normal inspection, Full ROM. negative: Tenderness, Thyromegaly - Respiratory Respiratory exam: Normal lung sounds bilaterally. negative: Respiratory distress - Cardiovascular Cardiovascular Exam: Regular rate, Normal rhythm, Normal heart sounds. negative: Irregular rhythm Peripheral Pulses: 2+: Radial (R), Radial (L) - GI/Abdominal GI/Abdominal exam: Soft, Normal bowel sounds. negative: Tenderness - Extremities Extremities exam: Normal inspection, Full ROM, Normal capillary refill. negative: Tenderness - Back Back exam: Reports: Normal inspection - Neurological Neurological exam: Alert, Normal gait, Oriented X3. negative: Motor sensory deficit - Psychiatric Psychiatric exam: Anxious, Normal mood - Skin Skin exam: Normal color. negative: Rash Course Vital Signs 04/22/19 13:03 Temperature 98.5 F Pulse Rate 70 Respiratory 18 Rate Blood Pressure 135/74 Pulse Ox 95 - Reevaluation(s) Reevaluation #1: 04/22/19 14:36 Seen on monitor. SR 60. EKG normal. Labs with TSH normal. present relates issues with anxiety and not taking Buspar as directed. Pt is concerned for thyroid meds, weight gain, etc... Long talk about need to see primary doct or and discuss anxiety and possible consult with hostess cashier. Pt remained without symptoms of dysrhythmia in ED. Home Procedures - EKG Initial Date: 04/22/19 Time: 13:16 EKG: Normal EKG Medical Decision Making - Lab Data Result diagrams: 04/22/19 12:18 Disposition Disposition: Discharge Clinical Impression: Palpitations, Anxiety Disposition: Home, Self-Care Condition: (2) Stable Instructions: Heart Palpitations (ED), Anxiety (ED) Additional Instructions: Take all meds as directed. DO NOT skip or break meds. See your doctor to review all meds and discuss further care. Return to the ED as needed. Forms: Patient Portal Access Time of Disposition: 14:39 Quality - Quality Measures Quality Measures: N/A - Blood Pressure Screening Does Patient Have Any of the Following: No Blood Pressure Classification: Pre-Hypertensive BP Reading Systolic Measurement: 135 Diastolic Measurement: 74 Screening for High Blood Pressure: < Pre-Hypertensive BP, F/U Documented > [G8950] Pre-Hypertensive Follow-up Interventions: Follow-up with rescreen every year.
== END 2019-04-22 14:52 | disposition home or self-care (01) ==
LOC: ER 12:48
DX: R00.2 Palpitations (principal); F41.9 Anxiety disorder, unspecified; Z86.711 Personal history of pulmonary embolism; E03.9 Hypothyroidism, unspecified; I48.91 Unspecified atrial fibrillation
CPT/HCPCS: 80051; 84443; 93005; 93010; 93041; 99284

== ENCOUNTER 2019-07-21 04:30 | Emergency (ER) | payer BC ==
--- NOTE | 2019-07-21 05:06 | Emergency Department Record ---
History of Present Illness - General Chief Complaint: Palpitations Stated Complaint: WOKE UP IN SWEAT, HEART RACING Time Seen by Provider: 07/21/19 04:47 Source: Patient Mode of Arrival: Ambulatory - History of Present Illness Initial Comments: The patient awakened from sleep diaphoretic and anxious at 0415 due to bilateral shoulder pain and chronic neck pain. He states it was worse than his usual baseline pain which is continuous and chronic. He has had bilateral shoulder scopes and told he has arthritis. He also has cervical spurs from his chronic neck pain and has been to a pain management center in [place]. He denies having chest pain. Eight years ago he had a DVT in his leg with a single episode of atrial fibrillation which has not recurred. He has had repeat workups for his heart which he tells me have been negative. He took his pulse at home which was 88 beats per minute and regular. He has no further symptoms here other than his baseline chronic neck and shoulder pain. Risks: Nonsmoker, no DM, htn, chol elevation. No hx of [place] or CVA. Onset/Timin -: Minutes(s) Context: Occurred during rest Arrythmia History: Atrial fibrillation, History of electrical cardioversion Associated Symptoms: Anxiety, Diaphoresis Treatments Prior to Arrival: Beta-jamee - Related Data Home Medications Medication Instructions Recorded Confirmed Last Taken Buspirone HCl [Buspar] 10 mg PO DAILY 07/21/19 07/21/19 07/20/19 Magnesium 200 mg PO DAILY 07/21/19 07/21/19 07/20/19 Allergies Allergy/AdvReac Type Severity Reaction Status Date / Time Penicillins Allergy Unknown RASH Verified 03/09/19 23:45 Sulfa (Sulfonamide Allergy Unknown RASH Verified 03/09/19 23:45 Antibiotics) sulfamethoxazole Allergy Unknown RASH Verified 03/09/19 23:45 Travel Screening - Travel/Exposure Within Last 30 Days Have you traveled within the last 30 days?: No - Travel Symptoms Symptom Screening: None Review of Systems Reviewed: No additional complaints except as noted below Constitutional: Reports: As per HPI. Denies: Chills, Fever, Malaise, Night sweats, Weakness, Weight change Eyes: Reports: As per HPI. Denies: Eye discharge, Eye pain, Photophobia, Vision change ENT: Reports: As per HPI. Denies: Congestion, Dental pain, Ear pain, Epistaxis, Hearing loss, Throat pain Respiratory: Reports: As per HPI. Denies: Cough, Dyspnea, Hemoptysis, Stridor, Wheezes Cardiovascular: Reports: As per HPI. Denies: Arrhythmia, Chest pain, Dyspnea on exertion, Edema, Murmurs, Orthopnea, Palpitations, Paroxysmal nocturnal dyspnea, Rheumatic Fever, Syncope Endocrine: Reports: As per HPI. Denies: Fatigue, Heat or cold intolerance, Polydipsia, Polyuria Gastrointestinal: Reports: As per HPI. Denies: Abdominal pain, Constipation, Diarrhea, Hematemesis, Hematochezia, Melena, Nausea, Vomiting Genitourinary: Reports: As per HPI. Denies: Dysuria, Frequency, Hematuria, Incontinence, Retention, Testicular pain, Testicular mass, Urgency Musculoskeletal: Reports: As per HPI. Denies: Arthralgia, Back pain, Gout, Joint swelling, Myalgia, Neck pain Skin: Reports: As per HPI. Denies: Bruising, Change in color, Change in hair/nails, Lesions, Pruritus, Rash Neurological: Reports: As per HPI. Denies: Abnormal gait, Confusion, Headache, Numbness, Paresthesias, Seizure, Tingling, Tremors, Vertigo, Weakness Psychiatric: Reports: As per HPI. Denies: Anxiety, Auditory hallucinations, Depression, Homicidal thoughts, Suicidal thoughts, Visual hallucinations Hematological/Lymphatic: Reports: As per HPI. Denies: Anemia, Blood Clots, Easy bleeding, Easy bruising, Swollen glands Past Medical History - SOCIAL HISTORY Smoking Status: Never smoker Drug Use: None - RESPIRATORY Hx Respiratory Disorders: Yes Hx Pulmonary Embolism: Yes - CARDIOVASCULAR Hx Cardio Disorders: Yes Hx Chest Pain: Yes Hx Deep Vein Thrombosis: Yes Hx Irregular Heartbeat: Yes (A-Fib 2012) - NEURO Hx Neuro Disorders: No - GI Hx GI Disorders: No - Hx Genitourinary Disorders: No - ENDOCRINE Hx Endocrine Disorders: Yes Hx Thyroid Disease: Yes (nodules) - MUSCULOSKELETAL Hx Musculoskeletal Disorders: Yes Hx Arthritis: Yes - PSYCH Hx Psych Problems: No - HEMATOLOGY/ONCOLOGY Hx Hematology/Oncology Disorders: No Family Medical History Hx Alcohol Use: Father, Brother/Sister Physical Exam - General General Appearance: Alert, Oriented x3, Cooperative, No acute distress, Other (obese) - Head Head exam: Normal inspection - Eye Eye exam: Normal appearance, PERRL, EOMI. negative: Conjunctival injection, Nystagmus, Scleral icterus Pupils: Normal accommodation - ENT ENT exam: Normal exam, Mucous membranes moist, Normal external ear exam, Normal orophraynx, TM's normal bilaterally Ear exam: Normal external inspection. negative: External canal tenderness Nasal Exam: Normal inspection. negative: Discharge, Sinus tenderness Mouth exam: Normal external inspection, Tongue normal Teeth exam: Normal inspection. negative: Dental caries Throat exam: Normal inspection. negative: Tonsillar erythema, Tonsillar exudate - Neck Neck exam: Normal inspection, Other (ROM diminished but at baseline). negative: Lymphadenopathy, Meningismus, Tenderness - Respiratory Respiratory exam: Normal lung sounds bilaterally. negative: Respiratory distress - Cardiovascular Cardiovascular Exam: Regular rate, Normal rhythm, Normal heart sounds - GI/Abdominal GI/Abdominal exam: Soft, Normal bowel sounds. negative: Tenderness - Rectal Rectal exam: Deferred - exam: Deferred - Extremities Extremities exam: Normal inspection, Full ROM, Normal capillary refill. negative: Calf tenderness, Pedal edema, Tenderness - Back Back exam: Reports: Normal inspection, Full ROM. Denies: CVA tenderness (R), CVA tenderness (L), Muscle spasm, Rash noted, Tenderness - Neurological Neurological exam: Alert, CN II-XII intact, Normal gait, Oriented X3, Reflexes normal. negative: Motor sensory deficit - Psychiatric Psychiatric exam: Normal affect, Normal mood - Skin Skin exam: Dry, Intact, Normal color, Warm Course Vital Signs 07/21/19 04:39 Temperature 97.8 F Pulse Rate [ 74 Left] Respiratory 16 Rate Blood Pressure 140/78 [Left Arm] Pulse Ox 98 - Reevaluation(s) Reevaluation #1: Patient is comfortable and ready for DC home. Will dispense 1 ativan to take at home as he is driving himself home. 07/21/19 05:46 Medical Decision Making - Management Options MDM Management: No Additional Work-up Planned - Data Complexity MDM Data: X-Ray Ordered and/or Reviewed (CXR two view Negative per rad iologist.), EKG Ordered and/or Reviewed (NSR @ 68/minue. No acute changes. ) Disposition Disposition: Discharge Clinical Impression: Chronic pain of both shoulders, Anxiety Disposition: Home, Self-Care Condition: (1) Good Instructions: Shoulder Pain (ED), Generalized Anxiety Disorder (ED) Additional Instructions: [facility] Leader home to bed. Take the ativan when you get home. Follow up with PCP and Pain management Clinic. Quality - Quality Measures Quality Measures: N/A - Blood Pressure Screening Does Patient Have Any of the Following: No Blood Pressure Classification: Hypertensive Reading Systolic Measurement: 140 Diastolic Measurement: 78 Screening for High Blood Pressure: < Pre-Hypertensive BP, F/U Documented > [G8950] Pre-Hypertensive Follow-up Interventions: Follow-up with rescreen every year., Lifestyle modifications., Referral to alternative/primary care provider. Lifestyle Modification: Weight Reduction
[2019-07-21] MEDS ORDERED: KETOROLAC 30 MG/ML VIAL IM ONE (05:07)
--- NOTE | 2019-07-21 05:32 | RADIOLOGY REPORT ---
EXAMINATION: Two View Chest Radiographs EXAM DATE: 07/21/2019 5:30 AM TECHNIQUE: Frontal and lateral views INDICATION: bilateral shouler pain, diaphoretic COMPARISON: 01/24/2019 ENCOUNTER: Not applicable FINDINGS: The heart, mediastinum, and pulmonary vasculature are normal. No lung consolidation or pleural effu sions are present. IMPRESSION: No acute pulmonary disease process Dictated by: iMri Marin DO on 07/21/2019 5:30 AM. .
[2019-07-21] MEDS ORDERED: HYDROMORPHONE HCL 2 MG/ML VIAL IVP ONE (05:35)
[2019-07-21] MEDS ORDERED: 0.9 % SODIUM CHLORIDE 1,000 ML BAG IV ONE (05:36)
[2019-07-21] MEDS ORDERED: LORAZEPAM 0.5 MG TABLET PO ONE (05:49)
== END 2019-07-21 06:03 | disposition home or self-care (01) ==
LOC: ER 04:30
DX: G89.29 Other chronic pain (principal); M25.512 Pain in left shoulder; M25.511 Pain in right shoulder; R61 Generalized hyperhidrosis; M54.2 Cervicalgia; I48.91 Unspecified atrial fibrillation; F41.9 Anxiety disorder, unspecified
CPT/HCPCS: 99284 ×2; 96372; 71046; 93005; 93010; J1885